=== PATIENT | female | born 1970 | race Caucasian/White ===

== ENCOUNTER 2020-03-30 06:43 | Outpatient (CLI) | payer MEDICARE, MEDICAID ==
[2020-03-30 22:56] LABS: SARS-CoV-2 MS2 Positive; SARS-CoV-2 N Gene Negative; SARS-CoV-2 S Gene Negative; SARS-CoV-2 by NAA Not Detected (NotDetected); SARS-CoV-2 orf1ab Negative
== END 2020-03-30 06:44 | disposition home or self-care (01) ==
LOC: LABBT 06:43
PROVIDERS: ATTEND Internal Medicine Gastroenterology
DX: Z20.828 Contact with and (suspected) exposure to other viral communicable diseases (principal)
CPT/HCPCS: 87635; U0003

== ENCOUNTER 2020-04-04 08:59 | Day surgery (SDC) | payer MEDICARE, MEDICAID ==
[2020-04-03 09:57] VITALS: BMI 20.3
[2020-04-04] MEDS ORDERED: PROPOFOL 200 MG/20 ML VIAL ONE (09:13)
[2020-04-04 10:13] LABS: BHCG - Serum Indeterminate (NEGATIVE)
[2020-04-04 10:14] LABS: Pregs Control Background? CLEAR/WHITE (CLR/WHITE); Pregs Control Bar Appear? YES (CONTROL BAR)
--- NOTE | 2020-04-04 11:55 | OP ---
DATE OF PROCEDURE: 04/04/2020 PROCEDURE PERFORMED: Colonoscopy. PREMEDICATION: Given by Anesthesiology Department. PREPROCEDURE DIAGNOSIS: Average-risk colon screening. POSTPROCEDURE DIAGNOSIS: Normal colon exam. DESCRIPTION OF PROCEDURE: Written consents were obtained prior to procedure. After adequate sedation, forward-viewing endoscope was advanced to the cecum. The quality of the bowel prep was good. The cecum, ascending colon, hepatic flexure, transverse colon, splenic flexure, descending colon, and rectosigmoid colon all appeared normal. The sigmoid colon was torturous. Retroflexion in the rectal vault was normal. The patient tolerated the procedure well. ASSESSMENT: Normal colon exam. RECOMMENDATION: Repeat screening colonoscopy in 10 years. Job ID: [id number]
== END 2020-04-04 12:25 | disposition home or self-care (01) ==
LOC: SDC 08:59
PROVIDERS: ATTEND Internal Medicine Gastroenterology
PROC: 0DJD8ZZ Inspection of Lower Intestinal Tract, Via Natural or Artificial Opening Endoscopic (ICD-10-PCS; principal; 2020-04-04)
DX: Z12.11 Encounter for screening for malignant neoplasm of colon (principal); E78.5 Hyperlipidemia, unspecified; G80.9 Cerebral palsy, unspecified; E55.9 Vitamin D deficiency, unspecified; J30.2 Other seasonal allergic rhinitis; F79 Unspecified intellectual disabilities
CPT/HCPCS: 84703; G0121; J2704